=== PATIENT | female | born 1985 | race African-American/Black ===

== ENCOUNTER 2018-11-06 21:19 | Emergency (ER) | payer MEDICAID ==
[~2018-11-06] VITALS: Ht 154.9 cm; Wt 66.7 kg
[2018-11-06 22:00] VITALS: BP 110/68
[2018-11-07 03:15] LABS: Urine Bacteria NONE SEEN /hpf (None Seen); Urine Blood 2+ /uL (Negative); Urine Mucus MODERATE (None Seen); Urine WBC 32 /hpf (0 - 5)
== END 2018-11-07 03:41 | disposition home or self-care (01) ==
LOC: ER 21:24
DX: Z48.01 Encounter for change or removal of surgical wound dressing (principal); N39.0 Urinary tract infection, site not specified
CPT/HCPCS: 81001

== ENCOUNTER 2019-01-12 14:55 | Emergency (ER) | payer MEDICAID ==
[~2019-01-12] VITALS: Ht 154.9 cm; Wt 69.9 kg
[2019-01-12 16:04] LABS: Urine Bacteria NONE SEEN /hpf (None Seen); Urine Blood Negative /uL (Negative); Urine Specific Gravity 1.003 (1.001-1.035); Urine WBC 1 /hpf (0 - 5)
[2019-01-12 19:04] VITALS: BP 112/77
== END 2019-01-12 20:49 | disposition home or self-care (01) ==
LOC: ER 15:02
DX: D25.9 Leiomyoma of uterus, unspecified (principal); Z98.51 Tubal ligation status
CPT/HCPCS: 74176; 81001; 81025